=== PATIENT | female | born 1965 | race Caucasian/White ===

== ENCOUNTER 2017-10-03 09:12 | Emergency (ER) | payer BC, OTHER ==
[2017-10-03 09:33] VITALS: TEMP 98.4; BMI 28.7
--- NOTE | 2017-10-03 10:08 | PDOC ---
History of Present Illness - General History Source: Patient Exam Limitations: No Limitations - History of Present Illness Initial Comments: 10/03/17 11:00 The patient is a 52 year old female with significant PMH of umbilical hernia who presents to the emergency department with periumbilical pain that began approximately 4 days ago. The patient states the periumbilical pain has been intermittent for the past 4 months. The patient notes the periumbilical pain has been constant for the past 4 days that is worsened by sitting down. The patient states she also noticed a foul-smelling, light yellow colored discharge from the umbilicus. The patient reports she has never tried to reduce the hernia and has not taken anything for the pain. Last had normal BM this morning. The patient denies chest pain, shortness of breath, headache and dizziness. Denies fever, chills, nausea, vomit, diarrhea and constipation. Denies bloody stools, dysuria, frequency, urgency and hematuria. Allergies: NKA Past surgical history: None reported. Social history: No reported alcohol, cigarette, or drug use. <Esha Rodrigez - Last Filed: 10/03/17 11:00> <Janna Rascon - Last Filed: 10/03/17 15:24> - General Chief Complaint: Pain, Acute Stated Complaint: ABD PAIN Time Seen by Provider: 10/03/17 10:08 Past History <Esha Rodrigez - Last Filed: 10/03/17 11:00> - Past Medical History COPD: No - Suicide/Smoking/Psychosocial Hx Smoking History: Current every day smoker Have you smoked in the past 12 months: Yes Number of Cigarettes Smoked Daily: 5 Information on smoking cessation initiated: No Hx Alcohol Use: No Drug/Substance Use Hx: No Substance Use Type: None <Janna Rascon - Last Filed: 10/03/17 15:24> - Past Medical History Allergies/Adverse Reactions: Allergies Allergy/AdvReac Type Severity Reaction Status Date / Time No Known Allergies Allergy Verified 10/03/17 09:33 Home Medications: Ambulatory Orders NK [No Known Home Medication] 10/03/17 Review of Systems - Review of Systems Able to Perform ROS?: Yes Comments:: 10/03/17 11:05 GENERAL/CONSTITUTIONAL: No fever or chills. No weakness. HEAD, EYES, EARS, NOSE AND THROAT: No change in vision. No ear pain or discharge. No sore throat. GASTROINTESTINAL: (+) Periumbilical pain. No nausea, vomiting, diarrhea or constipation. GENITOURINARY: No dysuria, frequency, or change in urination. CARDIOVASCULAR: No chest pain or shortness of breath. RESPIRATORY: No cough, wheezing, or hemoptysis. MUSCULOSKELETAL: No joint or muscle swelling or pain. No neck or back pain. SKIN: No rash NEUROLOGIC: No headache, vertigo, loss of consciousness, or change in strength/ sensation. ENDOCRINE: No increased thirst. No abnormal weight change. HEMATOLOGIC/LYMPHATIC: No anemia, easy bleeding, or history of blood clots. ALLERGIC/IMMUNOLOGIC: No hives or skin allergy. <Esha Rodrigez - Last Filed: 10/03/17 11:00> *Physical Exam - Vital Signs Last Vital Signs Temp Pulse Resp BP Pulse Ox 98.4 F 67 20 148/88 97 10/03/17 09:30 10/03/17 09:30 10/03/17 09:30 10/03/17 09:30 10/03/17 09:30 - Physical Exam Comments: 10/03/17 11:06 GENERAL: Awake, alert, and fully oriented, in no acute distress HEAD: No signs of trauma EYES: PERRLA, EOMI, sclera anicteric, conjunctiva clear ENT: Auricles normal inspection, hearing grossly normal, nares patent, oropharynx clear without exudates. Moist mucosa NECK: Normal ROM, supple, no lymphadenopathy, JVD, or masses LUNGS: CTAB. No crackles/wheezing HEART: Regular rate and rhythm, normal S1 and S2, no murmurs, rubs or gallops ABDOMEN: (+) Tenderness to the perumbilical area, with small defect palpable. + yellow crusting about the umbulicus with no drainage or redness. No palpable collection or induration. Soft, normoactive bowel sounds. No guarding, no rebound. No masses EXTREMITIES: Normal range of motion, no edema. No clubbing or cyanosis. No cords, erythema, or tenderness BACK: No midline spinal tenderness in cervical/thoracic/lumbar region NEUROLOGICAL: Normal speech, cranial nerves intact, negative pronator drift, 5/ 5 strength in all 4 extremities, normal sensation to light touch in all 4 extremities, normal cerebellar exam, normal gait, normal reflexes and tone SKIN: Warm, Dry, normal turgor, no rashes or lesions noted. <Esha Rodrigez - Last Filed: 10/03/17 11:00> - Vital Signs Last Vital Signs Temp Pulse Resp BP Pulse Ox 98.4 F 67 20 148/88 97 10/03/17 09:30 10/03/17 09:30 10/03/17 09:30 10/03/17 09:30 10/03/17 09:30 <Janna Rascon - Last Filed: 10/03/17 15:24> ED Treatment Course - LABORATORY CBC & Chemistry Diagram: 10/03/17 11:30 10/03/17 11:30 <Janna Rascon - Last Filed: 10/03/17 15:24> Medical Decision Making - Medical Decision Making 10/03/17 10:54 52-year-old female with a history of umbilical hernia for 3 months presents to the emergency department complaining of worsening pain over 3 days as well as yellow drainage from her umbilicus. Vitals are unremarkable. Exam with tenderness palpation in the periumbilical area. No mass or incarcerated/ strangulated hernia palpated. Pain may likely be secondary to abdominal hernia however given drainage will obtain CT imaging to evaluate for fistula or underlying fluid collection. We'll also obtain labs and urinalysis and reassess. 10/03/17 15:15 Labs unremarkable. Urinalysis unremarkable. CT scan with no collection and no acute pathology. CT scan did note some skin thickening and tiny umbulical hernia. Patient has felt well throughout ED stay and has not required any pain medication. Patient requests discharge home. Will discharge patient with a referral for surgical follow-up. I discussed the physical exam findings, ancillary test results and final diagnoses with the patient. I answered all of the patient's questions. The patient was satisfied with the care received and felt comfortable with the discharge plan and treatment plan. The patient will call their primary care physician within 24 hours to arrange follow-up and will return to the Emergency Department with any new, persistent or worsening symptoms. <Janna Rascon - Last Filed: 10/03/17 15:24> *DC/Admit/Observation/Transfer - Attestations Scribe Attestion: 10/03/17 11:06 Documentation prepared by Esha Rodrigez, acting as medical tech for Janna Rascon MD. <Esha Rodrigez - Last Filed: 10/03/17 11:00> - Discharge Dispostion Admit: No - Attestations Physician Attestion: 10/03/17 15:24 I, Dr. Janna Rascon MD, attest that this document has been prepared under my direction and personally reviewed by me in its entirety. I further attest, that it accurately reflects all work, treatment, procedures and medical decision -making performed by me. <Janna Rascon - Last Filed: 10/03/17 15:24> Diagnosis at time of Disposition: Abdominal pain - Discharge Dispostion Disposition: HOME Condition at time of disposition: Stable - Referrals Referrals: Alejandra Law MD [Primary Care Provider] - Damir Watson MD [Staff Physician] - - Patient Instructions Printed Discharge Instructions: DI for Abdominal Pain-Adult Additional Instructions: Call Dr. Watson's office to make a follow-up appointment with surgery within 1 month. Follow up with her primary care doctor within 1 week. Return to emergency department if you have any new, worsening or concerning symptoms.
[2017-10-03 12:11] LABS: BASO % 0.9 % (0-2.0); HEMATOCRIT 45.2 % (32.4-45.2); HEMOGLOBIN 14.8 GM/dL (10.7-15.3); LYMPH % 50.1 % (8-40); MCH 29.1 pg (25.7-33.7); MCHC 32.7 g/dl (32.0-36.0); MEAN CELL VOLUME 88.8 fl (80-96); MEAN PLT VOLUME 8.3 fl (7.5-11.1); MONO % 5.9 % (3.8-10.2); NEUT % 41.1 % (42.8-82.8); PLATELET COUNT 232 K/MM3 (134-434); RBC 5.09 M/mm3 (3.60-5.2); RDW 13.9 % (11.6-15.6)
[2017-10-03 12:13] LABS: HCG,QUALITATIVE URINE NEGATIVE
[2017-10-03 12:15] LABS: URINE APPEARANCE CLEAR; URINE BILIRUBIN NEGATIVE (NEGATIVE); URINE BLOOD NEGATIVE (NEGATIVE); URINE COLOR STRAW; URINE GLUCOSE (UA) NEGATIVE (NEGATIVE); URINE KETONE NEGATIVE (NEGATIVE); URINE LEUK ESTERASE TRACE (NEGATIVE); URINE NITRITE NEGATIVE (NEGATIVE); URINE PROTEIN NEGATIVE (NEGATIVE); URINE UROBILINOGEN NEGATIVE mg/dL (0.2-1.0)
[2017-10-03 12:19] LABS: EPI CELLS RARE /HPF (FEW); URINE MUCUS RARE
[2017-10-03 12:38] LABS: ALBUMIN 4.2 g/dl (3.4-5.0); ANION GAP 3 (8-16); CALCIUM 8.8 mg/dL (8.5-10.1); CHLORIDE 105 mmol/L (98-107); CO2 28 mmol/L (21-32); INR 1.04 (0.82-1.09); PROTHROMBIN TIME (PATIENT) 11.7 SEC (9.98-11.88); SODIUM 136 mmol/L (136-145)
[2017-10-03 12:44] LABS: ALK PHOS 83 U/L (45-117); BILIRUBIN,TOTAL 0.6 mg/dL (0.2-1.0); BLOOD UREA NITROGEN 27 mg/dL (7-18); CREATININE 0.7 mg/dL (0.55-1.02); GLUCOSE,RANDOM 77 mg/dL (74-106); MAGNESIUM 2.2 mg/dL (1.8-2.4); SGOT/AST 11 U/L (15-37); SGPT/ALT 17 U/L (12-78); TOT PROT 7.5 g/dl (6.4-8.2)
[2017-10-03] MEDS ORDERED: LACTATED RINGERS SOLUTION 1000 ML INFUS.BAG IV ONE (12:54)
[2017-10-03 16:09] VITALS: BP 137/95; PULSE 77
== END 2017-10-03 16:31 | disposition home or self-care (01) ==
LOC: JER 09:12
PROC: 3E0337Z Introduction of Electrolytic and Water Balance Substance into Peripheral Vein, Percutaneous Approach (ICD-10-PCS; principal; 2017-10-03)
DX: R10.33 Periumbilical pain (principal); F17.210 Nicotine dependence, cigarettes, uncomplicated
CPT/HCPCS: 36415; 74177-TC; 80053; 81003; 81015; 83605; 83735; 84703; 85025; 85610; 85730; 87086; 99283-25

== ENCOUNTER 2017-11-14 06:46 | Day surgery (SDC) | payer BC ==
[2017-11-13 09:03] VITALS: BMI 28.3
--- NOTE | 2017-11-14 08:00 | HP ---
History & Physical Update - History History: Change (see notes) (Umbilical hernia; she was seen in the ER 10/09/17 and then seen in the office and scheduled for surgery; she is a 1 ppd smoker and has a h/o an abdominoplasty.) - Physical Currently as noted:: resucible umbilical hernia; scars from previous abdominoplasty - Assessment Assessment: No Change (umbilical hernia) Currently as noted:: umbilical hernia - Plan Currently as noted:: repair umbilical hernia; r/b/t/a's d/w the patient pre-op; possible recurre
[2017-11-14] MEDS ORDERED: ROCURONIUM BROMIDE 50 MG/5 ML VIAL ONE (08:09)
[2017-11-14] MEDS ORDERED: MIDAZOLAM HCL 2 MG/2 ML SINGLE DOSE VIAL ONE (08:09)
[2017-11-14] MEDS ORDERED: LIDOCAINE HCL 1%, 10 MG/ML (20ML VIAL) ONE (08:33)
[2017-11-14] MEDS ORDERED: BUPIVACAINE HCL/PF 0.5% (5MG/ML) 10 ML VIAL ONE (08:33)
--- NOTE | 2017-11-14 08:43 | HP ---
Admitting History and Physical - Admission Chief Complaint: umbilical hernia History of Present Illness: Known umbilical hernia; recent visit to the ER and now more symptomatic and interfering w/ADL. 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: Alzheimer's, CVA, Dementia, Migraine, Multiple Sclerosis, Peripheral Neuropathy, Parkinson's, Seizure, Syncope, TIA, Vertigo, Other Cardiovascular: No: AFIB, Aneurysm, Aortic Insufficiency, Aortic Stenosis, CAD, CHF, Deep Vein Thrombosis, HTN, Hyperlipdemia, [place], Mitral Insufficiency, Mitral Stenosis, Murmur, Pulmonary Hypertension, Other Pulmonary: No: Asthma, Bronchitis, Cancer, COPD, O2 Dependent, Pneumonia, Previously Intubated, Pulmonary Embolus, Pulmonary Fibrosis, Sleep Apnea, Other Gastrointestinal: No: Ascites, Cancer, Constipation, Crohn's Disease, Diverticulitis, Diverticulosis, Esophageal Varices, Gastritis, GERD, GI Bleed, Hemorrhoids, Hiatal Hernia, Inflamatory Bowel Disease, Irritable Bowel Disease, Pancreatitis, Peptic Ulcer Disease, Ulcerative Colitis, Other Hepatobiliary: No: Cirrhosis, Cholelithiasis, Cholecystitis, Choledocholithiasis , Hepatitis A, Hepatitis B, Hepatitis C, Other Renal/: No: Renal Failure, Renal Inusuff, BPH, Cancer, Hematuria, Hemodialysis , Neurogenic Bladder, Renal Calculi, UTI, Other ...LMP Comment: >8 yrs ago ...: No Heme/Onc: No: Anemia, B12 Deficiency, Bleeding Disorder, Cancer, Current Chemotherapy, Current Radiation Therapy, Hemochromatosis, Hypercoaguable State, Myeloproliferative Synd, Sickle Cell Disease, Sickle Cell Trait, Thrombocytopenia, Other Infectious Disease: No: AIDS, C-Diff, Herpes Zoster, HIV, MRSA, STD's, Tuberculosis, VREF, Other Psych: No: Addictions, Anxiety, Bipolar, Depression, Panic, Psychosis, Schizophrenia, Other Musculoskeletal: No: Bursitis, Chronic low back pain, Hemiparesis, Hemiplegia, Osteoarthritis, Paraplegia, Other - Past Surgical History Additional Past Surgical History: abdominoplasty - Advance Directives Advance Directives: No: Living Will, Health Care Proxy, DNR, Organ Donor, Tissue Donor, MOLST - Smoking History Smoking history: Current every day smoker Have you smoked in the past 12 months: Yes Aproximately how many cigarettes per day: 5 - Alcohol/Substance Use History of Substance Use: denies: None, Cocaine, Heroin, Marijuana, Prescription , Tranquilizers - Social History Usual Living Arrangement: Yes: With Spouse ADL: Independent Occupation: business management specialist History of Recent Travel: No Home Medications - Allergies Allergies/Adverse Reactions: Allergies Allergy/AdvReac Type Severity Reaction Status Date / Time No Known Allergies Allergy Verified 11/14/17 08:16 - Home Medications Home Medications: Ambulatory Orders NK [No Known Home Medication] 10/03/17 Physical Examination Vital Signs: Vital Signs Temperature 98.2 F 11/14/17 08:16 Pulse Rate 72 11/14/17 08:16 Respiratory Rate 20 11/14/17 08:16 Blood Pressure 118/80 11/14/17 08:16 O2 Sat by Pulse Oximetry (%) 96 11/14/17 08:12 Constitutional: Yes: Well Nourished, No Distress, Calm. No: Anxious, Ashen, Cachectic, Diaphoresis, Mild Distress, Moderate Distress, Severe Distress, Obese , Pallor, Poor Hygeine, Thin, Other Eyes: Yes: WNL, Conjunctiva Clear, EOM Intact. No: Cataracts, Diplopia, Occular Prosthesis, PERRL, Ptosis, Sclera Icterus, Tearing, Other HENT: Yes: WNL, Atraumatic, Normocephalic. No: Drooling, Epistaxis, Hoarseness , Nasal Congestion, Pharyngeal Erythema, Rhinnorhea, Thrush, Tonsillar Exudate, Other Neck: Yes: WNL, Supple, Trachea Midline. No: Decreased ROM, Lymphadenopathy, Rigid, Tenderness, Thyromegaly, Other Cardiovascular: Yes: WNL, Regular Rate and Rhythm. No: Bradycardia, Tachycardia , Pulse Irregular, Bruit, JVD, Gallop, Murmur, Rub, S1, S2, S3, S4, Varicosities , Other Respiratory: Yes: WNL, Regular, CTA Bilaterally Gastrointestinal: Yes: Other (reducible umbilical hernia/abdiminoplasty scars) ...Rectal Exam: Yes: Deferred Renal/: No: WNL, Anuria, Bladder Distention, CVA Tenderness - Left, CVA Tenderness - Right, Reid Present, Hematuria, Incontinence, Menses Present, Oliguria, Polyuria, , Scrotal Edema, Urethral Discharge, Vaginal Bleeding, Vaginal Discharge, Other Breast(s): No: WNL, Left, Right, Breast Implants, Dimpling, Discharge from Nipple, Gynecomastia, Mass, Nipple Inversion, Skin Changes, Other Musculoskeletal: Yes: WNL Extremities: Yes: WNL Peripheral Pulses WNL: Yes Integumentary: Yes: WNL Neurological: Yes: WNL ...Motor Strength: WNL Psychiatric: Yes: WNL Assessment/Plan umbilical hernia; for repiar r/b/t/a/'s d/w patient and informed consent obtained. Visit type - Emergency Visit Emergency Visit: No - New Patient This patient is new to me today: Yes Date on this admission: 11/14/17 - Critical Care Critical Care patient: No Hospitalist Screening - Colonoscopy Questionnaire Colonoscopy Questionnaire: Colonoscopy Questionnaire - Patient: 50 - 75 years old and never had a screening colonoscopy: Yes History of colon or rectal polyps, or CA: No History of IBD, Crohn's disease or UC: No History of abdominal radiation therapy as a child: No - Relative: 1 with colon or rectal CA, or polyps at age 60 or younger: No Colon or rectal CA diagnosed at age 45 or younger: No Multiple relatives with colon or rectal CA: No - Outcome: Screening Result: Positive Screen
[2017-11-14] MEDS ORDERED: DESFLURANE GAS 240 ML BOTTLE IH ONE (08:58)
[2017-11-14] MEDS ORDERED: ceFAZolin SODIUM 1 GM VIAL IVPB ONE (09:08)
[2017-11-14] MEDS ORDERED: BUPIVACAINE HCL/PF 0.5% (5MG/ML) 10 ML VIAL IJ ONE (09:16)
[2017-11-14] MEDS ORDERED: LIDOCAINE HCL 1%, 10 MG/ML (20ML VIAL) INF ONE (09:16)
--- NOTE | 2017-11-14 09:57 | OP ---
Operative Note - Note: Operative Date: 11/14/17 Pre-Operative Diagnosis: umbilical hernia Operation: umbilical hernia repair Findings: 1.5 cm. fascial defect Post-Operative Diagnosis: Same as Pre-op Surgeon: Damir Watson Event Marketing Specialist: Wendy Morrissey Anesthesiologist/DIDACTIC INSTRUCTOR: Rosas Wolf Anesthesia: General Specimens Removed: sac and fat Estimated Blood Loss (mls): 10 Operative Report Dictated: Yes
[2017-11-14] MEDS ORDERED: ONDANSETRON 4 MG/2 ML VIAL IVPUSH PRN (10:01)
[2017-11-14] MEDS ORDERED: oxyCODONE HCL 5 MG TABLET PO PRN (10:01)
--- NOTE | 2017-11-14 10:06 | SURG ---
Surgery Track Manager Note Track Manager: Wendy Morrissey PA-C Date of Service: 11/14/17 Diagnosis: umbilical hernia Procedure: umbilical hernia repair I was present for the entirety of the operative procedure. For further detail, please refer to operative report. Visit type - Case Type Case Type: Scheduled Admission - Emergency Emergency Visit: No - New patient This patient is new to me today: Yes Date on this admission: 11/14/17
[2017-11-14] MEDS ORDERED: LACTATED RINGERS SOLUTION 1,000 ML IV SCH (10:15)
[2017-11-14 11:58] VITALS: TEMP 97.9
[2017-11-14 16:19] VITALS: BP 119/80; PULSE 76
--- NOTE | 2017-11-17 15:30 | PATH ---
Surgical Pathology Report Patient Name: HALI SHEETS [facility]. Rec. #: [id number] /Age/Gender: 1965 (Age: 52) / F Account: [id number] Location: [facility] SURGICAL Taken: 11/14/2017 Received: 11/14/2017 Reported: 11/17/2017 Physicians: Damir Watson MD Specimen(s) Received HERNIA SAC Clinical History Umbilical hernia Final Diagnosis HERNIA SAC, UMBILICAL HERNIA REPAIR: FIBROMEMBRANOUS AND FIBROADIPOSE TISSUE CONSISTENT WITH HERNIA SAC AND CONTENTS. Electronically Signed Bev Rosen M.D. Gross Description Received in formalin labeled "hernia sac," is a 2.0 x 1.0 x 0.4 cm wright-richardson portion of fibromembranous tissue with attached fat. The specimen is bisected and entirely submitted in one cassette. /11/14/2017 saudi/11/14/2017
--- NOTE | 2017-11-19 09:37 | OP ---
DATE OF OPERATION: 11/14/2017 PREOPERATIVE DIAGNOSIS: Umbilical hernia. POSTOPERATIVE DIAGNOSIS: Umbilical hernia. PROCEDURE: Umbilical hernia repair. SURGEON: Damir Watson MD FAMILY LAW SPECIALIST: Wendy Morrissey PA-C ANESTHESIA: General. OPERATIVE FINDINGS: There was evidence of previous abdominoplasty and there was an umbilical hernia containing preperitoneal fat with a defect at the umbilicus of 1.5 cm in greatest dimension. PROCEDURE: The patient was placed on the operating table in the supine position. After the induction of general anesthesia, patient's abdomen was prepped with ChloraPrep and draped in sterile fashion. A timeout was taken and an infraumbilical skin incision was made from the 3 to 9 o'clock position using a scalpel. This was taken down through skin and subcutaneous tissue. The umbilical stalk was bluntly encircled and then the umbilicus dissected off the abdominal wall. The sac was entered and redundant sac was excised using electrocautery as well as preperitoneal fat which was in the hernia. The fascial defect was then clearly defined and repaired with multiple 2-0 Prolene horizontal mattress sutures. Hemostasis was checked for and noted to be good and then the wound was copiously irrigated with sterile saline. Xylocaine 1% and 0.5% Marcaine were infiltrated into the operative field and then the umbilicus tacked down to the abdominal wall with interrupted 3-0 Vicryl. The deep dermis was reapproximated with interrupted 2-0 Vicryl and the skin edges with 4-0 Monocryl in a subcuticular continuous fashion. Steri-Strips, fluffs and dry sterile dressings were placed and the procedure terminated at this point and the patient aroused from general anesthesia and transferred to the postanesthesia care unit in stable condition awake and alert. ESTIMATED BLOOD LOSS: 10 mL. REPLACEMENTS: Crystalloid. DRAINS: None. SPECIMENS: Sac and fat to Pathology. I, Damir Watson, was physically present in the operating room from the time the patient was placed on the operating room table until she was transferred to the postanesthesia care unit in my accompaniment. MD TROY Brasher/[id number]
== END 2017-11-14 12:50 | disposition home or self-care (01) ==
LOC: JASU-SURG 06:46
PROVIDERS: ATTEND Surgery
PROC: 0WQF0ZZ Repair Abdominal Wall, Open Approach (ICD-10-PCS; principal; 2017-11-14 08:30)
DX: K42.9 Umbilical hernia without obstruction or gangrene (principal)
CPT/HCPCS: 88302-TC; 94760

== ENCOUNTER 2018-11-08 12:14 | Emergency (ER) | payer BC ==
[2018-11-08 12:18] VITALS: BP 117/81; PULSE 99; TEMP 98.4; BMI 32.0
--- NOTE | 2018-11-08 13:26 | PDOC ---
History of Present Illness - General Chief Complaint: Nasal Bleeding Stated Complaint: NOSE BLEEDING Time Seen by Provider: 11/08/18 12:34 History Source: Patient (nose bleed since yesterday, no trauma) - History of Present Illness Aspirin Received prior to arrival: Yes: no aspirin today Past History - Travel Traveled outside of the country in the last 30 days: No Close contact w/someone who was outside of country & ill: No - Past Medical History Allergies/Adverse Reactions: Allergies Allergy/AdvReac Type Severity Reaction Status Date / Time No Known Allergies Allergy Verified 11/08/18 12:18 Home Medications: Ambulatory Orders Oxymetazoline HCl [Afrin] 2 spray NS BID 3 Days #1 bottle 11/08/18 Anemia: No Asthma: No Cancer: No Cardiac Disorders: No CVA: No COPD: No CHF: No Dementia: No Diabetes: No GI Disorders: No Disorders: No HTN: No Hypercholesterolemia: No Liver Disease: No Seizures: No Thyroid Disease: No - Suicide/Smoking/Psychosocial Hx Smoking History: Never smoked Have you smoked in the past 12 months: Yes Number of Cigarettes Smoked Daily: 5 'Breaking Loose' booklet given: 11/13/17 Hx Alcohol Use: No Drug/Substance Use Hx: No Substance Use Type: None Hx Substance Use Treatment: No Review of Systems - Review of Systems Is the patient limited Maltese proficient: No Constitutional: No: Chills, Fever HEENTM: Yes: Nose Congestion, Nose Bleeding. No: Ear Discharge, Nose Pain Respiratory: No: Cough, Orthopnea, Shortness of Breath Cardiac (ROS): No: Chest Pain *Physical Exam - Vital Signs Last Vital Signs Temp Pulse Resp BP Pulse Ox 98.4 F 99 H 18 117/81 98 11/08/18 12:16 11/08/18 12:16 11/08/18 12:16 11/08/18 12:16 11/08/18 12:16 - Physical Exam General Appearance: Yes: Nourished HEENT: positive: EOMI, HEIDE, Rhinorrhea, Other (blood clot in R nostril, no active bleed, ) Respiratory/Chest: positive: Lungs Clear, Normal Breath Sounds Cardiovascular: positive: Regular Rhythm, Regular Rate, S1, S2 Moderate Sedation - Procedure Monitoring Vital Signs: Procedure Monitoring Vital Signs Temperature 98.4 F 11/08/18 12:16 Pulse Rate 99 H 11/08/18 12:16 Respiratory Rate 18 11/08/18 12:16 Blood Pressure 117/81 11/08/18 12:16 O2 Sat by Pulse Oximetry (%) 98 11/08/18 12:16 Medical Decision Making - Medical Decision Making 11/08/18 13:25 53y/o F with R nasal bleeding since yesterday, denies trauma, not actively bleeding, no headache 11/08/18 13:44 Anterior nasal tampon placed, Rx for afrin will be sent to pharmacy, f/u with ENT in 24hrs 11/08/18 14:21 pt now with L nostril nose bleed. it stopped after pressure, afrin sprayed into nose We'll continue to monitor patient pt reassessed, no more bleed, no bleeding from oropharyx either *DC/Admit/Observation/Transfer Diagnosis at time of Disposition: Epistaxis - Discharge Dispostion Disposition: HOME - Prescriptions Prescriptions: Oxymetazoline HCl [Afrin] 2 spray NS BID 3 Days #1 bottle - Referrals Referrals: Jayden Cordoba MD [Staff Physician] - Call tomorrow (needs to be seen in 2 days , has nasal packing) - Patient Instructions Printed Discharge Instructions: DI for Nosebleed Additional Instructions: Please follow up with ENT in 2 days to removal nasal packing, return to the Emergency Department if worsening symptoms occurs. - Post Discharge Activity Forms/Work/School Notes: Back to Work
[2018-11-08] MEDS ORDERED: OXYMETAZOLINE 0.05% NASAL SOLUTION 15 ML BOTTLE NS ONE (14:03)
[2018-11-08] MEDS ORDERED: ACETAMINOPHEN 325 MG TABLET (FP) PO ONE (14:27)
[2018-11-08] MEDS ORDERED: ACETAMINOPHEN 325 MG TABLET (FP) ONE (14:28)
== END 2018-11-08 14:51 | disposition home or self-care (01) ==
LOC: JERFT 12:14
PROC: 093K7ZZ Control Bleeding in Nasal Mucosa and Soft Tissue, Via Natural or Artificial Opening (ICD-10-PCS; principal; 2018-11-08)
DX: R04.0 Epistaxis (principal)
CPT/HCPCS: 99281-25

== ENCOUNTER 2021-10-05 08:49 | Day surgery (SDC) | payer BC ==
[2021-10-01 12:44] VITALS: BMI 31.4
[~2021-10-05 08:49] MED LIST: BUPIVACAINE HCL/PF 0.25% (2.5MG/ML) 10 ML VIAL IJ ONE
[2021-10-05] MEDS ORDERED: PROPOFOL 20 ML ONE (11:42)
[2021-10-05] MEDS ORDERED: MIDAZOLAM HCL 2 MG/2 ML SINGLE DOSE VIAL ONE (11:42)
[2021-10-05] MEDS ORDERED: ceFAZolin SODIUM 1 GM VIAL ONE (11:43)
[2021-10-05] MEDS ORDERED: LIDOCAINE HCL 2% JELLY (5 ML/TUBE) ONE (11:43)
[2021-10-05] MEDS ORDERED: DEXAMETHASONE SOD PHOSPHATE 4 MG/1 ML VIAL ONE (11:43)
[2021-10-05] MEDS ORDERED: LIDOCAINE HCL/PF 2% SDV 5ML VIAL ONE (11:43)
[2021-10-05] MEDS ORDERED: ONDANSETRON 4 MG/2 ML VIAL ONE (11:43)
[2021-10-05] MEDS ORDERED: KETOROLAC TROMETHAMINE 30 MG/1 ML VIAL ONE (11:43)
[2021-10-05] MEDS ORDERED: BUPIVACAINE HCL/PF 2.5 MG/ML - 30 ML VIAL IJ ONE ×2 (11:45→12:04)
[2021-10-05] MEDS ORDERED: BUPIVACAINE HCL/PF 0.25% (2.5MG/ML) 10 ML VIAL IJ ONE (12:53)
[2021-10-05] MEDS ORDERED: ONDANSETRON 4 MG/2 ML VIAL IVPUSH PRN (13:12)
[2021-10-05] MEDS ORDERED: oxyCODONE HCL 5 MG TABLET PO PRN ×2 (13:12)
[2021-10-05] MEDS ORDERED: PROMETHAZINE HCL 25 MG/1 ML VIAL IVPUSH PRN (13:12)
[2021-10-05] MEDS ORDERED: oxyCODONE HCL 5 MG TABLET ONE (14:05)
[2021-10-05 14:23] VITALS: TEMP 97.6
[2021-10-05 14:42] VITALS: BP 115/67; PULSE 61
== END 2021-10-05 14:45 | disposition home or self-care (01) ==
LOC: FASU 08:49
PROVIDERS: ATTEND Orthopaedic Surgery
PROC: 0SBD4ZZ Excision of Left Knee Joint, Percutaneous Endoscopic Approach (ICD-10-PCS; principal; 2021-10-05 12:28)
DX: M23.8X2 Other internal derangements of left knee (principal); M65.862 Other synovitis and tenosynovitis, left lower leg; S83.8X2A Sprain of other specified parts of left knee, initial encounter; X58.XXXA Exposure to other specified factors, initial encounter; Y92.9 Unspecified place or not applicable; Y93.9 Activity, unspecified
CPT/HCPCS: 88304-TC; 94760

== ENCOUNTER 2023-01-12 21:57 | Emergency (ER) | payer BC ==
[2023-01-12 22:14] VITALS: BP 141/97; PULSE 95; RESP 18; TEMP 96.7; BMI 32.2
[2023-01-12] MEDS ORDERED: ACETAMINOPHEN 500 MG TABLET (FP) PO ONE (23:20)
[2023-01-12] MEDS ORDERED: ACETAMINOPHEN 325 MG TABLET (FP) ONE (23:30)
== END 2023-01-12 23:35 | disposition home or self-care (01) ==
LOC: JER 21:57
DX: R51.9 Headache, unspecified (principal); I10 Essential (primary) hypertension
CPT/HCPCS: 99283-25